=== PATIENT | male | born 1975 | race Caucasian/White ===

== ENCOUNTER 2023-02-14 15:05 | Emergency (ER) | payer MEDICAID ==
[2023-02-14] MEDS ORDERED: Cyclobenzaprine 10 MG Tab PO ONE (16:04)
[2023-02-14] MEDS ORDERED: Ketorolac 30 MG/ML SDV IM ONE (16:04)
[2023-02-14 16:29] LABS: BASOPHILS PERCENT AUTO 0.2 % (0.3-3.8); EOSINOPHILS ABSOLUTE AUTO 0.1 x10-3/uL (0.0-0.6); EOSINOPHILS PERCENT AUTO 1.2 % (0.1-6.8); HEMOGLOBIN 12.5 g/dL (12.9-17.7); LYMPHOCYTES ABSOLUTE AUTO 2.8 x10-3/uL (0.5-4.5); MEAN CORPUSCULAR HEMOGLOBIN 20.2 pg (27.0-33.3); MEAN PLATELET VOLUME 8.3 fL (6.7-11.0); MONOCYTES ABSOLUTE AUTO 0.8 x10-3/uL (0.0-1.2); MONOCYTES PERCENT AUTO 6.9 % (5.5-15.2); NEUTROPHILS ABSOLUTE AUTO 7.6 x10-3/uL (1.7-6.9); NEUTROPHILS PERCENT AUTO 66.7 % (40.3-71.8); PLATELET COUNT,PLT 393 x10(3)uL (117-477); RED CELL DISTRIBUTION WIDTH 15.4 % (12.4-15.0); WHITE BLOOD CELL COUNT,WBC 11.3 x10-3/uL (3.2-10.1)
[2023-02-14 16:41] LABS: A/G RATIO 1.4; ALANINE AMINOTRANSFERASE,ALT 27 U/L (12-36); ALBUMIN 4.9 g/dL (3.5-5.2); ALKALINE PHOSPHATASE 107 IU/L (56-112); ASPARTATE AMNIOTRANSFERASE,AST 21 IU/L (5-25); BILIRUBIN TOTAL 0.6 mg/dL (0.1-1.3); BLOOD UREA NITROGEN,BUN 13 mg/dL (7-18); BUN/CREATININE RATIO 8.7 (9-20); CALCIUM 9.6 mg/dL (8.6-10.2); CARBON DIOXIDE,CO2 34 mmol/L (21-32); CHLORIDE,CL 92 mmol/L (100-110); CREATININE 1.5 mg/dL (0.70-1.30); EST CRCL DRUG DOSING (CG) 60.88 mL/min; ESTIMATED GFR 57 mL/min (>60); GLUCOSE RANDOM 104 mg/dL (80-116); PROTEIN TOTAL,TP 8.4 g/dL (6.0-8.0); SODIUM,NA 134 mmol/L (135-145)
[2023-02-14 16:45] LABS: POTASSIUM,K 2.6 mmol/L (3.5-5.3)
[2023-02-14 16:47] LABS: TROPONIN I 4.4 pg/mL (4.0-60.3)
[2023-02-14] MEDS ORDERED: Potassium Chloride 20 MEQ Tab.ER PO STA (18:13)
== END 2023-02-14 18:45 | disposition home or self-care (01) ==
LOC: FB.ED 15:05
DX: M47.812 Spondylosis without myelopathy or radiculopathy, cervical region (principal); M50.921 Unspecified cervical disc disorder at C4-C5 level; E87.6 Hypokalemia; Z88.0 Allergy status to penicillin; Z72.0 Tobacco use
CPT/HCPCS: 36415; 71045; 72040; 80053; 83880; 84484; 85025; 85379; 93005; 96372; 99284; A9270; J1885

== ENCOUNTER 2023-10-03 14:29 | Emergency (ER) | payer MEDICAID | END 2023-10-03 16:34 | disposition home or self-care (01) | LOC: FB.ED 14:29 | DX: S20.211A Contusion of right front wall of thorax, initial encounter (principal); I10 Essential (primary) hypertension; Z79.899 Other long term (current) drug therapy; Z88.2 Allergy status to sulfonamides; X50.9XXA Other and unspecified overexertion or strenuous movements or postures, initial encounter; Y99.0 Civilian activity done for income or pay | CPT/HCPCS: 71101-RT; 73030-RT; 99283; 99284 ==

== ENCOUNTER 2024-11-17 12:11 | Emergency (ER) | payer MEDICAID ==
[2024-11-17] MEDS ORDERED: Sodium Chloride 0.9% 10 ML Syringe FLUSH PRN (12:53)
[2024-11-17 13:17] LABS: HEMATOCRIT 33.4 % (38.3-50.1); HEMOGLOBIN 11.1 g/dL (12.9-17.7); MEAN CORPUSCULAR HEMOGLOBIN 19.8 pg (27.0-33.3); MEAN CORPUSCULAR HGB CONC 33.1 g/dL (28.7-35.3); MEAN CORPUSCULAR VOLUME 59.8 fL (80.8-98.7); MEAN PLATELET VOLUME 8.4 fL (6.7-11.0); PLATELET COUNT,PLT 374 x10(3)uL (117-477); RED BLOOD CELL COUNT 5.58 x10(6)uL (3.90-5.90); RED CELL DISTRIBUTION WIDTH 18.2 % (12.4-15.0); WHITE BLOOD CELL COUNT,WBC 26.6 x10-3/uL (3.2-10.1)
[2024-11-17] MEDS: Iopamidol 755 Mg/ML 100 ML Bottle IV SCH (13:22)
[2024-11-17 13:23] LABS: A/G RATIO 0.7; ALANINE AMINOTRANSFERASE,ALT 23 U/L (12-36); ALBUMIN 3.4 g/dL (3.5-5.2); ALKALINE PHOSPHATASE 130 IU/L (56-112); ASPARTATE AMNIOTRANSFERASE,AST 16 IU/L (5-25); BILIRUBIN TOTAL 0.8 mg/dL (0.1-1.3); BLOOD UREA NITROGEN,BUN 19 mg/dL (7-18); BUN/CREATININE RATIO 10.6 (9-20); CALCIUM 9.4 mg/dL (8.6-10.2); CARBON DIOXIDE,CO2 25 mmol/L (21-32); CHLORIDE,CL 97 mmol/L (100-110); CREATININE 1.8 mg/dL (0.70-1.30); EST CRCL DRUG DOSING (CG) 47.77 mL/min; ESTIMATED GFR 46 mL/min (>60); GLUCOSE RANDOM 210 mg/dL (80-116); PROTEIN TOTAL,TP 8.2 g/dL (6.0-8.0); SODIUM,NA 135 mmol/L (135-145)
[2024-11-17 13:31] LABS: POTASSIUM,K 2.8 mmol/L (3.5-5.3)
[2024-11-17 13:36] LABS: LYMPHOCYTES PERCENT MAN 9 % (13-37); MONOCYTES PERCENT MAN 9 % (4-12); SEG NEUTROPHILS PERCENT MAN 82 % (46-82)
[2024-11-17 13:37] LABS: ANISOCYTOSIS MODERATE; HYPOCHROMASIA FEW; MICROCYTOSIS MODERATE
[2024-11-17 13:38] LABS: TARGET CELLS FEW
[2024-11-17] MEDS: Ondansetron 4 MG/2 ML SDV IVPUSH ONE (13:40)
[2024-11-17] MEDS: Sodium Chloride 0.9% 1,000 ML IV ONE (13:40)
[2024-11-17] MEDS: Potassium Chloride 20 MEQ in Premix Bag 1 BAG IV ONE (13:51)
[2024-11-17] MEDS: Sodium Chloride 0.9% 1,000 ML IV SCH (14:56)
[2024-11-17] MEDS: Ertapenem 1 GM Vial IVPUSH ONE (15:12)
== END 2024-11-17 15:23 ==
LOC: FB.ED 12:11
DX: L02.11 Cutaneous abscess of neck (principal); E86.0 Dehydration; N17.9 Acute kidney failure, unspecified; E87.6 Hypokalemia; K12.2 Cellulitis and abscess of mouth; I10 Essential (primary) hypertension; K21.9 Gastro-esophageal reflux disease without esophagitis; F17.210 Nicotine dependence, cigarettes, uncomplicated; Z88.0 Allergy status to penicillin; Z79.899 Other long term (current) drug therapy
CPT/HCPCS: 36415; 70491; 80053; 83605; 83735; 85025; 86140; 87040; 96365; 96375; 99285; 99285-25; J1335; J2405; J3480; J7030; Q9967